=== PATIENT | male | born 1975 | race Caucasian/White ===

== ENCOUNTER 2020-05-16 19:59 | Observation (INO) ==
[2020-05-16] MEDS ORDERED: predniSONE 20 MG TABLET PO ONE (21:23)
[2020-05-16] MEDS ORDERED: Ipratropium/Albuterol Neb 3 ML IH ONE (21:23)
[2020-05-16 21:34] LABS: Basophils # 0.1 K/mcL (0.0-0.2); Basophils % 0.9 %; Eosinophils # 0.3 K/mcL (0.0-0.6); Hematocrit 44.3 % (37.5-50.1); Hemoglobin 14.6 g/dL (12.9-16.9); Lymphocytes # 1.1 K/mcL (0.6-4.6); Mean Corpuscular Hemoglobin 28.2 pg (28.0-33.3); Mean Corpuscular Volume 85.5 fL (83.0-100.0); Mean Platelet Volume 11.3 fL (9.4-12.4); Monocytes # 1.2 K/mcL (0.0-1.3); Monocytes % 17.2 %; Neutrophils # 4.3 K/mcL (1.6-8.9); Platelet Count 260 K/mcL (140-400); Red Blood Count 5.18 M/mcL (4.19-5.50); Red Cell Distribution Width 13.2 % (11.5-14.5); Segmented Neutrophils % 60.9 %
[2020-05-16 21:56] LABS: BUN/Creatinine Ratio 11 (6-26); Blood Urea Nitrogen 9 mg/dL (6-20); Calcium 9.4 mg/dL (8.6-10.3); Carbon Dioxide 23 mEq/L (23-29); Chloride 101 mEq/L (98-107); Glucose 128 mg/dL (70-105); Osmolality,Calculated 280 (280-300); Potassium 3.5 mEq/L (3.5-5.1); Sodium 135 mEq/L (136-145); Troponin I < 0.03 ng/mL (< 0.04); eGFR For African Americans > 60 (> 60); eGFR For Non-African Americans > 60 (> 60)
[2020-05-17] MEDS ORDERED: *HR* Metoprolol 5 MG/5 ML VIAL IVP ONE (01:14)
[2020-05-17] MEDS ORDERED: Naloxone 0.4 MG/ML INJ IVP PRN (01:15)
[2020-05-17] MEDS: *HR* Heparin 5,000 UNIT/ML VIAL SQ SCH ×3 (04:22→22:40)
[2020-05-17] MEDS: Levalbuterol 1 PUFF INHALER IH SCH ×2 (04:36→07:47)
[2020-05-17 06:32] LABS: Basophils % 0.7 %; Eosinophils % 0.3 %; Hematocrit 46.2 % (37.5-50.1); Hemoglobin 14.9 g/dL (12.9-16.9); Immature Granulocytes % 1.5 % (0-4); Lymphocytes # 0.7 K/mcL (0.6-4.6); Lymphocytes % 12.1 %; Mean Corpuscular HGB Conc 32.3 g/dL (31.6-35.5); Mean Corpuscular Hemoglobin 27.8 pg (28.0-33.3); Mean Corpuscular Volume 86.2 fL (83.0-100.0); Monocytes # 0.5 K/mcL (0.0-1.3); Monocytes % 8.1 %; Neutrophils # 4.6 K/mcL (1.6-8.9); Platelet Count 259 K/mcL (140-400); Red Blood Count 5.36 M/mcL (4.19-5.50); Red Cell Distribution Width 13.2 % (11.5-14.5); Segmented Neutrophils % 77.3 %; White Blood Count 5.9 K/mcL (4.3-11.1)
[2020-05-17 07:20] LABS: Alanine Aminotransferase 47 Units/L (7-52); Albumin 4.7 g/dL (3.5-5.7); Albumin/Globulin Ratio 1.5 (1.1-2.2); Alkaline Phosphatase 64 Units/L (34-104); Aspartate Amino Transferase 34 Units/L (13-39); BUN/Creatinine Ratio 14 (6-26); Bilirubin,Total 0.5 mg/dL (0.3-1.0); Blood Urea Nitrogen 10 mg/dL (6-20); Calcium 9.6 mg/dL (8.6-10.3); Carbon Dioxide 23 mEq/L (23-29); Chloride 99 mEq/L (98-107); Globulin 3.1 g/dL (2.4-3.5); Glucose 157 mg/dL (70-105); Osmolality,Calculated 278 (280-300); Potassium 3.8 mEq/L (3.5-5.1); Sodium 133 mEq/L (136-145); Total Protein 7.8 g/dL (6.4-8.9); eGFR For African Americans > 60 (> 60); eGFR For Non-African Americans > 60 (> 60)
[2020-05-17] MEDS: Tiotropium 18 MCG inhalation IH SCH (07:49)
[2020-05-17] MEDS ORDERED: Aspirin 325 MG TABLET PO SCH (09:00)
[2020-05-17] MEDS: amLODIPine 5 MG TABLET PO SCH (09:56)
[2020-05-17] MEDS: hydroCHLOROthiazide 25 MG TABLET PO SCH (09:56)
[2020-05-17] MEDS ORDERED: Loratadine 10 MG TABLET PO PRN (12:16)
[2020-05-17] MEDS ORDERED: Famotidine 20 MG TABLET PO PRN (12:16)
[2020-05-17] MEDS: Nitroglycerin 0.4 MG TAB.SUBL SL SCH (14:34)
[2020-05-18 03:42] LABS: Basophils # 0.1 K/mcL (0.0-0.2); Basophils % 0.8 %; Eosinophils # 0.2 K/mcL (0.0-0.6); Eosinophils % 2.8 %; Hematocrit 47.6 % (37.5-50.1); Hemoglobin 15.7 g/dL (12.9-16.9); Immature Granulocytes % 1.3 % (0-4); Lymphocytes # 1.4 K/mcL (0.6-4.6); Lymphocytes % 22.9 %; Mean Platelet Volume 11.3 fL (9.4-12.4); Monocytes # 1.2 K/mcL (0.0-1.3); Monocytes % 19.7 %; Platelet Count 253 K/mcL (140-400); Red Blood Count 5.41 M/mcL (4.19-5.50); Red Cell Distribution Width 13.5 % (11.5-14.5); Segmented Neutrophils % 52.5 %
[2020-05-18 03:55] LABS: Neutrophils # 3.2 K/mcL (1.6-8.9)
[2020-05-18 04:01] LABS: BUN/Creatinine Ratio 20 (6-26); Blood Urea Nitrogen 15 mg/dL (6-20); Calcium 9.5 mg/dL (8.6-10.3); Carbon Dioxide 25 mEq/L (23-29); Chloride 96 mEq/L (98-107); Glucose 117 mg/dL (70-105); Osmolality,Calculated 276 (280-300); Potassium 3.3 mEq/L (3.5-5.1); Sodium 132 mEq/L (136-145); eGFR For African Americans > 60 (> 60); eGFR For Non-African Americans > 60 (> 60)
[2020-05-18 04:33] LABS: Large Platelets Present (Not Present); Platelet Estimate Normal (Normal)
[2020-05-18] MEDS: *HR* Heparin 5,000 UNIT/ML VIAL SQ SCH ×3 (06:06→22:14)
[2020-05-18] MEDS: Folic Acid 1 MG TABLET PO SCH (08:00)
[2020-05-18] MEDS: BuPROPion XL (24 HR) 150 MG TABLET PO SCH (08:01)
[2020-05-18] MEDS: hydroCHLOROthiazide 25 MG TABLET PO SCH (08:01)
[2020-05-18] MEDS: Aspirin Enteric Coated 81 MG Tablet PO SCH (08:01)
[2020-05-18] MEDS: amLODIPine 5 MG TABLET PO SCH (08:01)
[2020-05-18] MEDS: Tiotropium 18 MCG inhalation IH SCH (08:02)
[2020-05-18] MEDS: Nitroglycerin 0.4 MG TAB.SUBL SL SCH (13:56)
[2020-05-18] MEDS ORDERED: Ondansetron 4 MG/2 ML VIAL IVP PRN (14:06)
[2020-05-18] MEDS ORDERED: Ondansetron 4 MG/2 ML VIAL IVP SCH (18:00)
[2020-05-19 01:23] LABS: Basophils % 0.5 %; Eosinophils # 0.2 K/mcL (0.0-0.6); Eosinophils % 3.1 %; Hematocrit 47.2 % (37.5-50.1); Hemoglobin 15.8 g/dL (12.9-16.9); Lymphocytes # 1.6 K/mcL (0.6-4.6); Lymphocytes % 20.1 %; Mean Corpuscular HGB Conc 33.5 g/dL (31.6-35.5); Mean Corpuscular Hemoglobin 29.3 pg (28.0-33.3); Mean Corpuscular Volume 87.4 fL (83.0-100.0); Monocytes # 1.4 K/mcL (0.0-1.3); Monocytes % 17.3 %; Neutrophils # 4.5 K/mcL (1.6-8.9); Platelet Count 251 K/mcL (140-400); Red Cell Distribution Width 13.6 % (11.5-14.5); White Blood Count 7.8 K/mcL (4.3-11.1)
[2020-05-19 01:48] LABS: BUN/Creatinine Ratio 19 (6-26); Blood Urea Nitrogen 15 mg/dL (6-20); Calcium 9.1 mg/dL (8.6-10.3); Carbon Dioxide 26 mEq/L (23-29); Chloride 96 mEq/L (98-107); Chol/HDL Ratio 6.4 (0-4.9); Cholesterol 134 mg/dL (< 200); Glucose 125 mg/dL (70-105); HDL Cholesterol 21 mg/dL (40-59); LDL Cholesterol,Calculated 85 mg/dL (< 100); Osmolality,Calculated 278 (280-300); Potassium 3.7 mEq/L (3.5-5.1); Sodium 133 mEq/L (136-145); Triglycerides 142 mg/dL (< 150); eGFR For African Americans > 60 (> 60); eGFR For Non-African Americans > 60 (> 60)
[2020-05-19] MEDS ORDERED: Acetaminophen 325 MG TABLET PO PRN (04:06)
[2020-05-19] MEDS ORDERED: *HR* Enoxaparin 40 MG/0.4 ML SYRINGE SQ SCH (06:00)
[2020-05-19] MEDS ORDERED: Regadenoson 0.4 MG/5 ML SYRINGE IVP ONE (06:17)
[2020-05-19] MEDS: Tiotropium 18 MCG inhalation IH SCH (07:37)
[2020-05-19] MEDS: BuPROPion XL (24 HR) 150 MG TABLET PO SCH (08:49)
[2020-05-19] MEDS: Aspirin Enteric Coated 81 MG Tablet PO SCH (08:49)
[2020-05-19] MEDS: Folic Acid 1 MG TABLET PO SCH (08:50)
[2020-05-19] MEDS: hydroCHLOROthiazide 25 MG TABLET PO SCH (08:51)
[2020-05-19] MEDS: amLODIPine 5 MG TABLET PO SCH (08:52)
[2020-05-19] MEDS ORDERED: Dexamethasone 10 MG/ML VIAL IVP SCH (09:00)
[2020-05-19] MEDS ORDERED: Isosorbide MONOnitrate (24 HR) 30 MG TAB.ER.24H PO SCH (12:00)
[2020-05-19 13:06] VITALS: BP 146/95
[2020-05-19] MEDS ORDERED: Metoprolol XL (24 HR) Succ 25 MG TAB.ER.24H PO SCH (18:00)
== END 2020-05-19 15:11 | disposition home or self-care (01) ==
LOC: EMEROOARM 19:59 → 2NENU 19:59 → SUATTDRO 05-17 01:24 → 2NENU 05-17 02:20
PROVIDERS: ADMIT Student in an Organized Health Care Education/Training Program; ATTEND Family Medicine

== ENCOUNTER 2021-01-17 19:58 | Observation (INO) ==
[2021-01-17 20:32] LABS: Basophils # 0.1 K/mcL (0.0-0.2); Basophils % 0.5 %; Eosinophils # 0.2 K/mcL (0.0-0.6); Eosinophils % 2.1 %; Immature Granulocytes % 0.5 % (0-4); Lymphocytes # 1.5 K/mcL (0.6-4.6); Lymphocytes % 13.2 %; Mean Corpuscular HGB Conc 33.3 g/dL (31.6-35.5); Mean Corpuscular Hemoglobin 28.3 pg (28.0-33.3); Mean Platelet Volume 10.9 fL (9.4-12.4); Monocytes # 1.2 K/mcL (0.0-1.3); Monocytes % 10.6 %; Neutrophils # 8.2 K/mcL (1.6-8.9); Platelet Count 222 K/mcL (140-400); Red Blood Count 4.59 M/mcL (4.19-5.50); Red Cell Distribution Width 13.4 % (11.5-14.5); Segmented Neutrophils % 73.1 %; White Blood Count 11.3 K/mcL (4.3-11.1)
[2021-01-17] MEDS ORDERED: Aspirin 325 MG TABLET PO ONE (20:52)
[2021-01-17 21:12] LABS: Alanine Aminotransferase 24 Units/L (7-52); Albumin 4.1 g/dL (3.5-5.7); Albumin/Globulin Ratio 1.5 (1.1-2.2); Alkaline Phosphatase 54 Units/L (34-104); Aspartate Amino Transferase 18 Units/L (13-39); BUN/Creatinine Ratio 12 (6-26); Bilirubin,Total 0.5 mg/dL (0.3-1.0); Blood Urea Nitrogen 9 mg/dL (6-20); Calcium 8.5 mg/dL (8.6-10.3); Carbon Dioxide 24 mEq/L (23-29); Chloride 103 mEq/L (98-107); Globulin 2.8 g/dL (2.4-3.5); Glucose 124 mg/dL (70-105); Osmolality,Calculated 280 (280-300); Potassium 3.6 mEq/L (3.5-5.1); Sodium 135 mEq/L (136-145); Total Protein 6.9 g/dL (6.4-8.9); Troponin I < 0.03 ng/mL (< 0.04); eGFR For African Americans > 60 (> 60); eGFR For Non-African Americans > 60 (> 60)
[2021-01-17] MEDS ORDERED: Tiotropium 10 INH DOSE IH PRN (23:02)
[2021-01-17] MEDS ORDERED: Albuterol 2.5 MG/3 ML NEBULIZER IH PRN (23:02)
[2021-01-17] MEDS ORDERED: Naloxone 0.4 MG/ML INJ IVP PRN (23:08)
[2021-01-17] MEDS ORDERED: Acetaminophen 325 MG TABLET PO PRN (23:08)
[2021-01-17] MEDS ORDERED: Melatonin 3 MG TABLET PO PRN (23:08)
[2021-01-17] MEDS ORDERED: Ondansetron 4 MG/2 ML VIAL IVP PRN (23:08)
[2021-01-17] MEDS ORDERED: Nitroglycerin 0.4 MG TAB.SUBL SL SCH (23:15)
[2021-01-17] MEDS ORDERED: D5% in Water 1,000 ML IVC PRN (23:28)
[2021-01-17] MEDS ORDERED: Dextrose Gel 15 GM/37.5 ML TUBE PO PRN ×2 (23:28)
[2021-01-17] MEDS ORDERED: *HR* Dextrose 50 % in Water (Vial) 50 ML VIAL IVP PRN (23:28)
[2021-01-18] MEDS: Ranolazine 500 MG TAB.ER.12H PO SCH ×2 (00:31→08:21)
[2021-01-18 02:52] LABS: Estimated Average Glucose 143 mg/dl; Hemoglobin A1C 6.6 %
[2021-01-18 03:22] LABS: Chol/HDL Ratio 5.1 (0-4.9)
[2021-01-18] MEDS ORDERED: *HR* Heparin 5,000 UNIT/ML VIAL SQ SCH (06:00)
[2021-01-18] MEDS ORDERED: Furosemide 40 MG TABLET PO SCH (08:00)
[2021-01-18] MEDS: Insulin LISPRO 300 UNITS/3 ML VIAL SUBQ SCH ×2 (08:19→11:01)
[2021-01-18] MEDS ORDERED: Aspirin Enteric Coated 81 MG Tablet PO SCH (09:00)
[2021-01-18] MEDS ORDERED: amLODIPine 5 MG TABLET PO SCH (09:00)
[2021-01-18 15:25] VITALS: BP 152/80
[2021-01-18] MEDS ORDERED: Metoprolol XL (24 HR) Succ 25 MG TAB.ER.24H PO SCH (18:00)
[2021-01-18] MEDS ORDERED: Insulin LISPRO 300 UNITS/3 ML VIAL SUBQ SCH (21:00)
[2021-01-19] MEDS ORDERED: Furosemide 40 MG TABLET PO SCH (09:00)
== END 2021-01-18 16:17 | disposition home or self-care (01) ==
LOC: EMEROOARM 19:58 → 3BNU 19:58 → SUATTDRO 22:37 → 3BNU 23:17
PROVIDERS: ADMIT Internal Medicine; ATTEND Registered Nurse